=== PATIENT | female | born 1955 | race Caucasian/White ===

== ENCOUNTER 2023-07-21 09:28 | Day surgery (SDC) | payer BC ==
[2023-07-17 10:46] VITALS: BMI 29.2
[2023-07-21 11:59] VITALS: TEMP 96.8
[2023-07-21 12:01] VITALS: BP 110/60; PULSE 88; RESP 19
== END 2023-07-21 12:10 | disposition home or self-care (01) ==
LOC: FASU-ENDO 09:28
PROVIDERS: ATTEND Internal Medicine Gastroenterology
PROC: 0DJD8ZZ Inspection of Lower Intestinal Tract, Via Natural or Artificial Opening Endoscopic (ICD-10-PCS; principal; 2023-07-21 11:34)
DX: Z12.11 Encounter for screening for malignant neoplasm of colon (principal); Z80.0 Family history of malignant neoplasm of digestive organs